=== PATIENT | female | born 1995 | race Caucasian/White ===

== ENCOUNTER 2018-09-05 13:44 | Emergency (ER) | payer MEDICAID, OTHER ==
[~2018-09-05] VITALS: Ht 165.1 cm; Wt 79.0 kg
[2018-09-05 14:58] VITALS: BP 131/88
[2018-09-05] MEDS ORDERED: HYDROCODONE/ACETAMINOPHEN 5/325MG TABLET PO ONE (15:00)
[2018-09-05] MEDS ORDERED: DOCUSATE SODIUM SUGAR FREE 100MG/10ML UDC NG ONE (15:30)
== END 2018-09-05 17:50 | disposition home or self-care (01) ==
LOC: ER 16:01
DX: T16.2XXA Foreign body in left ear, initial encounter (principal); X58.XXXA Exposure to other specified factors, initial encounter; Y93.89 Activity, other specified; Y92.018 Other place in single-family (private) house as the place of occurrence of the external cause
CPT/HCPCS: 69200; 99284; Z7610

== ENCOUNTER 2021-03-04 02:27 | Emergency (ER) | payer MEDICAID, OTHER ==
[~2021-03-04] VITALS: Ht 170.2 cm; Wt 87.9 kg
[2021-03-04 02:33] VITALS: BP 136/86
[2021-03-04] MEDS ORDERED: TETANUS, DIPHTHERIA, PERTUSSIS VAC/PF 0.5ML (>7YR OLD) IM ONE (04:30)
[2021-03-04] MEDS ORDERED: BACITRACIN ZINC OINT UDPKT TOP ONE (04:30)
[2021-03-04] MEDS ORDERED: LIDOCAINE HCL/EPINEPHRINE 1%-EPI 1:100,000 20 ML VIAL INFIL ONE (04:30)
[2021-03-04] MEDS ORDERED: ACETAMINOPHEN 325MG TABLET PO ONE (04:30)
[2021-03-04] MEDS ORDERED: ACET-2708 MT (06:24)
[2021-03-04] MEDS ORDERED: NAP5EC MT (06:24)
== END 2021-03-04 06:39 | disposition home or self-care (01) ==
LOC: ER 02:27
DX: S01.81XA Laceration without foreign body of other part of head, initial encounter (principal); Y04.0XXA Assault by unarmed brawl or fight, initial encounter; Y93.89 Activity, other specified; Y92.89 Other specified places as the place of occurrence of the external cause; Y99.8 Other external cause status; Z98.890 Other specified postprocedural states
CPT/HCPCS: 12011; 70450; 70486; 81025; 90471; 90715; 99285; J3490; Z7610

== ENCOUNTER 2021-03-09 07:54 | Emergency (ER) | payer MEDICAID ==
[~2021-03-09] VITALS: Ht 165.1 cm; Wt 87.0 kg
[~2021-03-09 07:54] MED LIST: ACET-2708 MT; NAP5EC MT
[2021-03-09 08:30] VITALS: BP 112/70
== END 2021-03-09 08:30 | disposition home or self-care (01) ==
LOC: ER 07:54
DX: Z48.02 Encounter for removal of sutures (principal)
CPT/HCPCS: 99281; Z7610